=== PATIENT | female | born 1975 | race Caucasian/White ===

== ENCOUNTER → 2016-11-07 | Outpatient (CLI) | payer BC ==
[2016-03-23 17:00] VITALS: BP 117/69
[~2016-11-07] MED LIST: ALPR0.254 PO; BUPR150T11 PO; CYCL10TA2 PO; HYDR2TAB13 PO; OXYC-244 PO; TIZA4TAB PO; TOPI50TA4 PO; TRAM50TA PO; VENL37.5 PO; VENL75CA6 PO
[2016-11-07 13:15] LABS: BASO % 1 % (0-3); EOS % 0 % (0-3); HEMATOCRIT 44.9 % (36.0-47.0); HEMOGLOBIN 15.1 g/dL (12.0-15.5); LYMPH # 1.8 x10^3/uL (1.0-4.8); LYMPH % 20 % (24-48); MEAN CORPUSCULAR HEMOGLOBIN 32 pg (25-35); MEAN CORPUSCULAR HGB CONC 34 g/dL (31-37); MEAN CORPUSCULAR VOLUME 96 fL (79-100); MONO % 7 % (0-9); NEUT % 72 % (31-73); PLATELET COUNT 263 x10^3/uL (140-400); RED BLOOD COUNT 4.66 x10^6/uL (3.50-5.40); RED CELL DISTRIBUTION WIDTH 13.2 % (11.5-14.5); WHITE BLOOD COUNT 8.8 x10^3/uL (4.0-11.0)
[2016-11-07 13:22] LABS: INR 1.1 (0.8-1.1); PROTHROMBIN TIME PATIENT 13.7 SEC (11.7-14.0)
--- NOTE | 2016-11-07 13:33 | EKG ---
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
[2016-11-07 13:36] LABS: ALBUMIN 4.2 g/dL (3.4-5.0); C-REACTIVE PROTEIN 4.3 mg/L (0-3.3); CREATININE 0.9 mg/dL (0.6-1.0); GFR 69.7; POTASSIUM 3.4 mmol/L (3.5-5.1)
--- NOTE | 2016-11-07 13:53 | RAD ---
Chest, 2 views, 11/07/2016: History: Preop evaluation for shoulder surgery The heart size and pulmonary vascularity are normal. No pulmonary infiltrates are seen. There is no evidence of pleural fluid. There are 2 surgical screws projected over the right glenoid fossa region. IMPRESSION: No acute cardiopulmonary abnormality is detected.
[2016-11-07 13:56] LABS: BILIRUBIN,URINE NEGATIVE (NEG); GLUCOSE,URINE NEGATIVE (NEG); NITRITE,URINE NEGATIVE (NEG); PH,URINE 7.5; PROTEIN,URINE NEGATIVE (NEG-TRACE); UROBILINOGEN,URINE 0.2 mg/dL (0.2 mg/dL)
[2016-11-07 14:04] LABS: BACTERIA,URINE 0 /HPF (0-FEW); RBC,URINE 0 /HPF (0-2); SQUAMOUS EPITHELIAL CELL,UR FEW /LPF; WBC,URINE 0 /HPF (0-4)
== END | disposition home or self-care (01) ==
LOC: SURGPAT 12:09
PROVIDERS: ATTEND Orthopaedic Surgery
DX: Z01.818 Encounter for other preprocedural examination (principal)
CPT/HCPCS: 36415; 71020; 80048; 81001; 82040; 85027; 85610; 85651; 85730; 86140; 87641; 93005